=== PATIENT | female | born 1960 | race Caucasian/White ===

== ENCOUNTER 2019-01-29 16:47 | Emergency (ER) | payer MEDICARE, MEDICAID ==
[~2019-01-29] VITALS: Ht 157.5 cm; Wt 85.9 kg
[2019-01-29 16:51] VITALS: Ht 157.5 cm; Wt 85.9 kg
[2019-01-29] MEDS ORDERED: XANAX1 MG PO (16:53)
[2019-01-29] MEDS ORDERED: NEURONTIN 300300 MG PO (16:53)
[2019-01-29] MEDS ORDERED: METOPROLOL TART25 MG PO (16:53)
[2019-01-29] MEDS ORDERED: HCTZ25 MG PO (16:53)
[2019-01-29] MEDS ORDERED: GLUCOPHAGE1000 MG PO (16:53)
[2019-01-29] MEDS ORDERED: CELEXA20 MG PO (16:54)
[2019-01-29] MEDS ORDERED: GEMFIBROZIL600 MG PO (16:55)
[2019-01-29] MEDS ORDERED: PRAVACHOL40 MG PO (16:56)
[2019-01-29] MEDS ORDERED: VOLTAREN75 MG PO (17:30)
[2019-01-29 18:02] VITALS: BP 132/66
== END 2019-01-29 18:03 | disposition home or self-care (01) ==
LOC: D.ER 16:47
DX: S39.012A Strain of muscle, fascia and tendon of lower back, initial encounter (principal); X58.XXXA Exposure to other specified factors, initial encounter; Y93.89 Activity, other specified; Y92.89 Other specified places as the place of occurrence of the external cause; M62.838 Other muscle spasm

== ENCOUNTER 2020-03-27 19:31 | Emergency (ER) | payer MEDICARE, MEDICAID ==
[~2020-03-27] VITALS: Ht 157.5 cm; Wt 99.3 kg
[~2020-03-27 19:31] MED LIST: CELEXA20 MG PO; GEMFIBROZIL600 MG PO; GLUCOPHAGE1000 MG PO; HCTZ25 MG PO; METOPROLOL TART25 MG PO; NEURONTIN 300300 MG PO; PRAVACHOL40 MG PO; VOLTAREN75 MG PO; XANAX1 MG PO
[2020-03-27 19:36] VITALS: Ht 157.5 cm; Wt 99.3 kg
[2020-03-27 20:08] LABS: APTT 38.4 SECONDS (22.8-39.4); INR 1.05 (0.85-1.17); PROTIME 13.7 SECONDS (11.6-15.0)
[2020-03-27 20:23] LABS: CALC OSMOLALITY 274 mosm/kg (275-300); CALCIUM 9.9 mg/dL (8.5-10.1); CARBON DIOXIDE 31.3 mmol/L (21.0-32.0); CHLORIDE - SERUM 99 mmol/L (98-107); CREATININE - SERUM 0.7 mg/dL (0.6-1.3); GLUCOSE 107 mg/dL (74-106); POTASSIUM - SERUM 3.7 mmol/L (3.5-5.1); SODIUM 137 mmol/L (136-145); UREA NITROGEN 14 mg/dL (7-18); eGFR NON AFRICAN AMERICAN 90 mL/min (90-120)
[2020-03-27 20:26] LABS: BASOPHILS 0.2 % (0-2); EOSINOPHILS 3.2 % (0-7); HEMATOCRIT 43.5 % (36.0-48.0); IMMATURE GRANULOCYTES 0.3 % (0-5); LYMPHOCYTES 36.7 % (15-50); MCH 30.2 pg (26.0-34.0); MCHC 32.2 g/dL (31.0-37.0); MCV 93.8 fL (80.0-100.0); MEAN PLATELET VOLUME 8.6 fL (7.4-10.4); MONOCYTES 10.1 % (2-11); NEUTROPHILS 49.5 % (40-80); PLATELET COUNT 348 10x3/uL (130-400); RBC 4.64 10x6/uL (4.00-5.40); RDW 13.5 % (11.5-14.5)
[2020-03-27 20:32] LABS: ALBUMIN 4.2 g/dL (3.4-5.0); ALKALINE PHOSPHATASE 52 U/L (30-120); ALT (SGPT) 47 U/L (10-68); BILIRUBIN - TOTAL 0.41 mg/dL (0.2-1.3)
[2020-03-27 20:35] LABS: TROPONIN-I < 0.017 ng/mL (0.000-0.060)
[2020-03-27] MEDS ORDERED: PEPCID40 MG PO (21:01)
[2020-03-27 22:19] VITALS: BP 154/87
== END 2020-03-27 22:19 | disposition home or self-care (01) ==
LOC: D.ER 19:31
PROVIDERS: Family Medicine
DX: R07.89 Other chest pain (principal); K29.70 Gastritis, unspecified, without bleeding; K21.9 Gastro-esophageal reflux disease without esophagitis; I10 Essential (primary) hypertension; E11.9 Type 2 diabetes mellitus without complications; Z79.84 Long term (current) use of oral hypoglycemic drugs; E78.5 Hyperlipidemia, unspecified